=== PATIENT | male | born 1980 | race Caucasian/White ===

== ENCOUNTER 2022-02-21 10:12 | Emergency (ER) | payer OTHER, SELFPAY ==
--- NOTE | 2022-02-21 10:16 | ED.URI ---
HPI - URI/Sore Throat General Chief Complaint: Upper Respiratory Infection Stated Complaint: possible pink eye,congestion Time Seen by Provider: 02/21/22 10:17 Source: patient and RN notes reviewed Mode of arrival: ambulatory History of Present Illness HPI Narrative: Patient is a 41-year-old male who presents the urgent care with complaints of congestion, runny nose, postnasal drainage for 1 week. Patient states that he woke up with left eye redness yesterday and the yellow thick drainage this morning. Patient has been taking DayQuil and using Visine drops. Denies any ill exposures. Denies of any fevers. No other complaints. No acute distress noted. Patient aware of the plan of care. Some parts of this dictation were generated by voice recognition software and may contain typographical and/or grammatical inaccuracies. Related Data Home Medications Medication Instructions Recorded Confirmed etodolac 400 mg tablet 400 mg PO BID 04/10/20 02/21/22 Allergies Allergy/AdvReac Type Severity Reaction Status Date / Time nut - unspecified Allergy Unknown hives, Verified 01/27/22 11:33 vomiting tree nut Allergy Unknown HIVES Verified 01/27/22 11:33 Review of Systems Review of Systems: CONSTITUTIONAL: Denies fever, chills, or sweats. EYES: Reports of left eye redness and yellow discharge ENT: Reports of rhinorrhea, sinus congestion, postnasal drainage CARDIOVASCULAR: Denies chest pain, palpitations, or edema. RESPIRATORY: Denies cough or dyspnea. GASTROINTESTINAL: Denies abdominal pain, nausea, vomiting, or diarrhea. GENITOURINARY: Denies dysuria or hematuria. SKIN: Denies rash or itching. MUSCULOSKELETAL: Denies back pain, joint pain, or myalgia. NEUROLOGIC: Denies headache, numbness, or weakness. All other systems reviewed are negative, except as documented in HPI. [facility] Past Medical History Medical History Ankylosing spondylitis lumbar region Ankylosing spondylitis of lumbar region Hip pain, bilateral Family History Family History Father Diabetes mellitus Patient's father is Family history of renal failure Cerebrovascular accident Grandparent Diabetes mellitus Hypertension Mother Hypertension Social History Social History (Updated 01/27/22 @ 11:35 by Adrienne Lawrence [facility]) Smoking end date: 09/18/11 Alcohol intake: current Comments At the time of my signature, I reviewed and agree with the nursing past medical, surgical, social, and family history. There is no relevant family history pertinent to the patient complaint. Exam Narrative: GENERAL: This is a well-nourished, well-developed patient, in no apparent distress. HEAD: normocephalic, atraumatic. EYES: PERRL. Right sclera clear/white. Moderately injected left conjunctiva with mild erythemic sclera. Vision is grossly intact. EARS: External ears normal, auditory canals clear and without drainage, TMs normal without perforation. Hearing grossly intact. NOSE: External nose normal with no obvious nasal discharge, nares without redness, yellow rhinorrhea. THROAT: Mucous membranes moist, posterior pharynx clear. Moderate postnasal drainage NECK: Neck supple CARDIOVASCULAR: Regular rate and rhythm without murmurs, gallops, or rubs. RESPIRATORY: Clear to auscultation. Breath sounds equal bilaterally. No wheezes, rales, or rhonchi. SKIN: warm, intact with no suspicious lesions or rash, good texture and turgor. NEURO: awake, alert, and oriented to person, place and time. There were no obvious focal neurologic abnormalities. EXTREMITIES: No clubbing, cyanosis, or edema. Course Course Level of Care: Express Care Visit Vital Signs Vital signs: Vital Signs Temperature 98.3 F 02/21/22 10:20 Pulse Rate 84 02/21/22 10:20 Respiratory Rate 16 02/21/22 10:20 Blood Pressure 157/91 H 02/21/22 10:20 Pulse Ox
[2022-02-21 10:20] VITALS: BP 157/91; PULSE 84; RESP 16; TEMP 36.8; O2SAT 97
== END 2022-02-21 10:45 | disposition home or self-care (01) ==
PROVIDERS: Emergency Provider Nurse Practitioner Family; PCP Family Medicine
DX: H10.32 Unspecified acute conjunctivitis, left eye (principal); J06.9 Acute upper respiratory infection, unspecified; M45.6 Ankylosing spondylitis lumbar region
CPT/HCPCS: 99213; G0463

== ENCOUNTER 2024-12-06 00:49 | Day surgery (SDC) | payer OTHER, SELFPAY ==
[2024-11-28 11:54] VITALS: BMI 30.4
--- OUTSIDE RECORDS SUMMARY | 2024-12-06 00:52 | XMS_ITS | Continuity of Care Document ---
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 Advance Directives Directive Yes / No Effective Date File Name No Information Encounters Encounter Description Practice Location Reason(s) For Visit Diagnoses Date Provider Providers Copied on Encounter Office/outpat ient Visit, [facility], [address] [place] [address] [address], [place], [place], [id number], [place] tel:[phone] SEC [facility] No Information [address] Marybeth De Santiago. [address] [facility] , [address], [place], [address], [place]. tel:[phone] Family History Family Member Type Diagnosis Age At Onset No Information Payers Payer name Insurance type Covered constitution party ID Authoriza tion(s) No Information Social History Type Description Quantity Date Captured Comments Sex Male Smoking Status No Information Chief Complaint And Reason For Visit No Information Reason For Referral Reason For Referral No Information History Of Present Illness Encounter Date Complaint History Of Prese nt Illness No Information Functional Status Date Functional Assessmen t No Information Instructions Date Instruction Additional Infor mation No Information Assessments Type Assessment Date No Information Patient Care Teams Name Effective Dates (start - stop) Status Members No Information
--- OUTSIDE RECORDS SUMMARY | 2024-12-06 00:52 | XMS_ITS ---
Author Organization Unknown Medications Medication Instructions Effective Dates (start - stop) Status etodolac 400 MG Oral Tablet [id number] :00:00Z - Completed 1 ML secukinumab 150 MG/ML Prefilled Syringe [Cosentyx] - Complete d 1 ML secukinumab 150 MG/ML Prefilled Syringe [Cosentyx] - Complete d sulfasalazine 500 MG Oral Tablet T00:00:00Z - Completed etodolac 400 MG Oral Tablet [id number] :00:00Z - Completed tramadol hydrochloride 50 MG Oral Tablet - Completed sulfasalazine 500 MG Oral Tablet T00:00:00Z - Completed etodolac 400 MG Oral Tablet [id number] :00:00Z - Completed 1 ML secukinumab 150 MG/ML Prefilled Syringe [Cosentyx] - Complete d 1 ML secukinumab 150 MG/ML Prefilled Syringe [Cosentyx] - Complete d gabapentin 300 MG Oral Capsule 2023-09-20 T00:00:00Z - Completed sulfasalazine 500 MG Oral Tablet 00:00:00Z - Completed etodolac 400 MG Oral Tablet [id number] :00:00Z - Completed gabapentin 300 MG Oral Capsule 2023-05-31 T00:00:00Z - Completed 1 ML secukinumab 150 MG/ML Prefilled Syringe [Cosentyx] - Complete d sulfasalazine 500 MG Oral Tablet 00:00:00Z - Completed lisinopril 40 MG Oral Tablet [id number] 0:00:00Z - Completed 1 ML secukinumab 150 MG/ML Prefilled Syringe [Cosentyx] - Complete d etodolac 400 MG Oral Tablet [id number] :00:00Z - Completed etodolac 400 MG Oral Tablet [id number] :00:00Z - Completed gabapentin 300 MG Oral Capsule 2024-04-11 T00:00:00Z - Completed 1 ML secukinumab 150 MG/ML Prefilled Syringe [Cosentyx] - Complete d etodolac 400 MG Oral Tablet [id number] :00:00Z - Completed 24 HR metformin hydrochlorid e 500 MG Extended Release Oral Tablet - Compl eted 1 ML secukinumab 150 MG/ML Prefilled Syringe [Cosentyx] - Complete d 1 ML secukinumab 150 MG/ML Prefilled Syringe [Cosentyx] - Complete d etodolac 400 MG Oral Tablet [id number] :00:00Z - Completed 1 ML secukinumab 150 MG/ML Prefilled Syringe [Cosentyx] - Complete d 24 HR metformin hydrochlorid e 500 MG Extended Release Oral Tablet - Compl eted gabapentin 300 MG Oral Capsule 2023-11-01 T00:00:00Z - Completed sulfasalazine 500 MG Oral Tablet T00:00:00Z - Completed 1 ML secukinumab 150 MG/ML Prefilled Syringe [Cosentyx] - Complete d gabapentin 300 MG Oral Capsule 2023-12-21 T00:00:00Z - Completed sulfasalazine 500 MG Oral Tablet T00:00:00Z - Completed Patient Care team information Name Category Status Period Participants - - Proposed period not known -
[2024-12-06 07:17] VITALS: BP 150/92; PULSE 63; RESP 18; TEMP 36.1; O2SAT 99
[2024-12-06] MEDS: LACTATED RINGERS 1,000 ML 150 ML IV CONT (07:29)
[2024-12-06 07:31] LABS: Glucose Point of Care 133 mg/dl (65-105)
--- NOTE | 2024-12-06 08:19 | PM.IMHP ---
H&P: HPI History of Present Illness Date/Time: 12/06/24 08:19 Chief Complaint: Screening colonoscopy Narrative: This is the patient's first colonoscopy. There are no GI symptoms and there is no family history of colorectal cancer. Review of Systems Review of Systems: All systems reviewed & are unremarkable except as noted in HPI and below PMFSH Past Medical History Medical History Hip pain, bilateral Ankylosing spondylitis lumbar region Ankylosing spondylitis of lumbar region Family History Family History Father Diabetes mellitus Patient's father is Family history of renal failure Cerebrovascular accident Grandparent Diabetes mellitus Hypertension Mother Hypertension Social History Social History Social History: Caffeine-Energy drinks Smoking packs per day: 0.5 Smoking cigarettes per day: 10.0 Years smoked: 6 Smoking pack-years: 3.00 Smoking status: Former smoker Tobacco type: cigarettes and e-cigarettes/vaping Smoking end date: 09/18/11 Additional smoking assessment comments: Occasionally vaps Alcohol intake: never Alcohol use details: occasionally weekends Substance use: never Substance use type: does not use Lack of Transportation: No Lack of Food: Never True Current Housing: I Have Housing Concerned About Future Housing: No Difficulty Paying Gas/Electric Bills: No Difficulty Paying for Meds: No Currently Unemployed: No Education: Associate Degree Difficulty w/ Childcare or Family Care: No Living arrangements: alone Spiritual care concerns: No Meds Home Medications and Allergies Home Medications ?Medication ?Instructions ?Recorded ?Confirmed ?Type sulfasalazine 500 mg tablet 1.5 gm (3 x 500 mg) PO BID #180 10/11/19 12/06/24 Rx tabs etodolac 400 mg tablet 400 mg PO BID 04/10/20 12/06/24 History gabapentin 300 mg capsule 300 mg PO BID 09/23/22 12/06/24 History secukinumab 150 mg/mL subcutaneous 150 mg subcut MONTHLY 09/23/22 11/28/24 History syringe (Cosentyx) tramadol 50 mg tablet 50 mg PO Q8H PRN pain #90 tabs 03/25/24 11/28/24 Rx lisinopril 40 mg tablet 40 mg PO DAILY #90 tabs 07/29/24 12/06/24 Rx metformin 500 mg tablet,extended See Rx Instructions .Route 10/22/24 12/06/24 Rx release 24 hr .COMPLEX #360 tabs Allergies Allergy/AdvReac Type Severity Reaction Status Date / Time tree nut Allergy Unknown HIVES Verified 12/06/24 07:15 Vital Signs Vital Signs - 24 hr 12/06/24 07:17 Temperature 97 F L Pulse Rate 63 Respiratory Rate 18 Blood Pressure 150/92 H Pulse Oximetry 99 Oxygen Delivery Room Air Exam Const: General: cooperative and healthy appearing Resp: Effort & Inspection: normal respiratory effort and able to speak in complete sentences Auscultation: clear to auscultation bilaterally Cardio: Rate: regular rate Rhythm: regular rhythm GI: Inspection: normal to inspection GI Palp: No No hepatosplenomegaly present Auscultation: normal bowel sounds Rectal Exam: deferred Skin: General skin exam: normal color Psych: Appearance: grossly normal Mental Status: mental status grossly normal Assessment and Plan Assessment and plan (1) Colon cancer screening: Code(s): Z12.11 - Encounter for screening for malignant neoplasm of colon Status: Acute Assessment and Plan: The patient is deemed a good candidate for the procedure. Consent signed. Will proceed.
--- NOTE | 2024-12-06 08:20 | P.PNAN_ITS ---
Anes - Initial Pre Proc Eval Procedure: Operation Date: 12/06/24 08:30 Proposed Procedures p Screening Colonoscopy - Cristofer Kirkland MD Date/Time: 12/06/24 08:20 Surgeon: Cristofer Kirkland MD Pre Op Diagnosis: Screening Patient Data Age: 44 Gender: M Height: 1.65 m Weight: 80.7 kg Last Vital Signs Temp 36.1 C L 12/06/24 07:17 Pulse 63 12/06/24 07:17 Resp 18 12/06/24 07:17 BP 150/92 H 12/06/24 07:17 Pulse Ox 99 12/06/24 07:17 O2 Del Method Room Air 12/06/24 07:17 Allergies Allergy/AdvReac Type Severity Reaction Status Date / Time tree nut Allergy Unknown HIVES Verified 12/06/24 07:15 Home Medications ?Medication ?Instructions ?Recorded ?Confirmed ?Type sulfasalazine 500 mg tablet 1.5 gm (3 x 500 mg) PO BID #180 10/11/19 12/06/24 Rx tabs etodolac 400 mg tablet 400 mg PO BID 04/10/20 12/06/24 History gabapentin 300 mg capsule 300 mg PO BID 09/23/22 12/06/24 History secukinumab 150 mg/mL subcutaneous 150 mg subcut MONTHLY 09/23/22 11/28/24 History syringe (Cosentyx) tramadol 50 mg tablet 50 mg PO Q8H PRN pain #90 tabs 03/25/24 11/28/24 Rx lisinopril 40 mg tablet 40 mg PO DAILY #90 tabs 07/29/24 12/06/24 Rx metformin 500 mg tablet,extended See Rx Instructions .Route 10/22/24 12/06/24 Rx release 24 hr .COMPLEX #360 tabs Laboratory Tests 12/06/24 07:27 POC Capillary Glucose 133 H mg/dl (65-105) Patient hx anesthesia problems: none Family hx anesthesia problems: none Results Review: All pre-operative results and documents have been reviewed as part of the pre- operative evaluation. REPLACED BY [facility] Past Medical History Medical History Hip pain, bilateral Ankylosing spondylitis lumbar region Ankylosing spondylitis of lumbar region Family History Family History Father Diabetes mellitus Patient's father is Family history of renal failure Cerebrovascular accident Grandparent Diabetes mellitus Hypertension Mother Hypertension Social History Social History Social History: Caffeine-Energy drinks Smoking packs per day: 0.5 Smoking cigarettes per day: 10.0 Years smoked: 6 Smoking pack-years: 3.00 Smoking status: Former smoker Tobacco type: cigarettes and e-cigarettes/vaping Smoking end date: 09/18/11 Additional smoking assessment comments: Occasionally vaps Alcohol intake: never Alcohol use details: occasionally weekends Substance use: never Substance use type: does not use Lack of Transportation: No Lack of Food: Never True Current Housing: I Have Housing Concerned About Future Housing: No Difficulty Paying Gas/Electric Bills: No Difficulty Paying for Meds: No Currently Unemployed: No Education: Associate Degree Difficulty w/ Childcare or Family Care: No Living arrangements: alone Spiritual care concerns: No Anes - Eval Final PreProcedure Day of Procedure 12/06/24 08:20 Patient weight: obese Heart: regular rate and rhythm Lungs: normal air movement Airway: Mallampati scale class II Neurological: alert and oriented Last oral intake: >/= 8 hours ASA classification: III Emergent: no Anesthetic plan: proceed Anesthesia type and monitoring: general GIVS and standard monitoring Results Review: All pre-operative results and documents have been reviewed as part of the pre- operative evaluation. Informed Consent: The patient's anesthetic plan and its attendant risks and benefits were discussed with the patient/family/POA. Questions were solicited and answers provided to the satisfaction of the patient/family/POA.
[2024-12-06 08:43] VITALS: BP 122/76; PULSE 70; RESP 15; O2SAT 97
[2024-12-06 08:53] VITALS: BP 127/82; PULSE 68; RESP 14; O2SAT 98
[2024-12-06 09:03] VITALS: BP 144/95; PULSE 73; RESP 15; O2SAT 99
== END 2024-12-06 09:08 | disposition home or self-care (01) ==
PROVIDERS: PCP Family Medicine; Referring Provider Family Medicine; Visit Provider Internal Medicine Gastroenterology
PROC: 0DJD8ZZ Inspection of Lower Intestinal Tract, Via Natural or Artificial Opening Endoscopic (ICD-10-PCS; CPT 45378; principal; 2024-12-06 08:30)
DX: Z12.11 Encounter for screening for malignant neoplasm of colon (principal); Z79.84 Long term (current) use of oral hypoglycemic drugs; F17.290 Nicotine dependence, other tobacco product, uncomplicated; E66.9 Obesity, unspecified; Z68.29 Body mass index [BMI] 29.0-29.9, adult
CPT/HCPCS: 45378; 82948; J2003; J2704; J7120

== ENCOUNTER 2025-08-13 13:20 | Outpatient (CLI) | payer OTHER, SELFPAY ==
--- NOTE | ~2025-08-13 | XR_ITS ---
EXAMINATION: XR knee RT 3V, 08/13/2025 13:40 [employer]ORBIKE [employer]ER HISTORY: Pain in right knee, no inj, no surg, pain x 1 week COMPARISON: No comparisons available. Findings: No acute fracture or malalignment. No significant degenerative changes. Soft tissues unremarkable. Impression: No acute fracture or malalignment. Reviewed, dictated and finalized at location P. RBIKE COURIER Impression: No acute fracture or malalignment.
== END 2025-08-13 13:21 | disposition home or self-care (01) ==
LOC: GOSHIMG 13:21
PROVIDERS: PCP Nurse Practitioner Family; Visit Provider Nurse Practitioner Family
DX: M25.561 Pain in right knee (principal)
CPT/HCPCS: 73562